=== PATIENT | female | born 1960 | race African-American/Black ===

== ENCOUNTER → 2016-09-04 | Outpatient (CLI) | payer OTHER ==
[~2016-09-04] MED LIST: AMLO10 PO; BACT800T5 PO; CEPH500 PO; HYDR-2768 PO; LISI-591 PO; SULF-154 PO
[2016-09-04 08:56] LABS: HEMATOCRIT 38.1 % (35.0-46.0); MEAN CELL VOLUME 81.7 FL (80.0-100.0); MEAN CORPUSCULAR HEMOGLOBIN 26.6 PG (27.0-34.0); MEAN CORPUSCULAR HGB CONC 32.6 % (32.0-36.0); PLATELET COUNT 186 TH/MM3 (150-450); RED BLOOD COUNT 4.67 MIL/MM3 (4.00-5.30); RED CELL DISTRIBUTION WIDTH 16.2 % (11.6-17.2); REVIEW FLAG FINAL; WHITE BLOOD COUNT 5.4 TH/MM3 (4.0-11.0)
[2016-09-04 09:19] LABS: WESTERGREN SEDIMENTATION RATE 39 mm/hr (0-30)
[2016-09-04 09:34] LABS: ALKALINE PHOSPHATASE 104 U/L (45-117); ALT (GPT) 43 U/L (10-53); ANION GAP 7 MEQ/L (5-15); AST (GOT) 44 U/L (15-37); BICARBONATE 32.1 MEQ/L (21.0-32.0); BLOOD UREA NITROGEN 18 MG/DL (7-18); CHLORIDE 103 MEQ/L (98-107); GLOMERULAR FILTRATION RATE 69 ML/MIN (>89); GLUCOSE,FASTING 86 MG/DL (74-99); SODIUM (NA) 142 MEQ/L (136-145); TOTAL BILIRUBIN ADULT 0.5 MG/DL (0.2-1.0)
[2016-09-04 10:13] LABS: POTASSIUM 2.9 MEQ/L (3.5-5.1)
== END ==
LOC: CLAB 08:32
PROVIDERS: ATTEND Internal Medicine Rheumatology
DX: M06.4 Inflammatory polyarthropathy (principal); Z79.899 Other long term (current) drug therapy
CPT/HCPCS: 36415; 80053; 85027; 85652; 86140

== ENCOUNTER → 2016-09-18 | Outpatient (CLI) | payer OTHER ==
[2016-09-18 10:04] LABS: FREE T4 1.61 NG/DL (0.76-1.46); GLUCOSE,FASTING 90 MG/DL (74-99)
[2016-09-18 16:00] LABS: HEMOGLOBIN A1a 0.8 %; HEMOGLOBIN A1b 1.4 %; HEMOGLOBIN Ao 86.3 %; HEMOGLOBIN LA1C 1.8 %; HEMOGLOBIN P3 3.7 %
== END ==
LOC: CLAB 08:39
DX: E89.0 Postprocedural hypothyroidism (principal); R73.01 Impaired fasting glucose
CPT/HCPCS: 36415; 82947; 83036; 84439; 84443

== ENCOUNTER → 2016-11-13 | Outpatient (CLI) | payer OTHER ==
[2016-11-13 09:26] LABS: HEMATOCRIT 40.3 % (35.0-46.0); MEAN CELL VOLUME 81.7 FL (80.0-100.0); MEAN CORPUSCULAR HEMOGLOBIN 26.7 PG (27.0-34.0); MEAN CORPUSCULAR HGB CONC 32.7 % (32.0-36.0); PLATELET COUNT 167 TH/MM3 (150-450); RED BLOOD COUNT 4.93 MIL/MM3 (4.00-5.30); RED CELL DISTRIBUTION WIDTH 16.5 % (11.6-17.2); REVIEW FLAG FINAL; WHITE BLOOD COUNT 5.1 TH/MM3 (4.0-11.0)
[2016-11-13 09:56] LABS: ALKALINE PHOSPHATASE 92 U/L (45-117); ALT (GPT) 18 U/L (10-53); ANION GAP 7 MEQ/L (5-15); AST (GOT) 22 U/L (15-37); BICARBONATE 31.9 MEQ/L (21.0-32.0); BLOOD UREA NITROGEN 15 MG/DL (7-18); CHLORIDE 102 MEQ/L (98-107); GLOMERULAR FILTRATION RATE 79 ML/MIN (>89); GLUCOSE,FASTING 93 MG/DL (74-99); SODIUM (NA) 141 MEQ/L (136-145); TOTAL BILIRUBIN ADULT 0.6 MG/DL (0.2-1.0)
[2016-11-13 10:02] LABS: WESTERGREN SEDIMENTATION RATE 42 mm/hr (0-30)
[2016-11-13 10:04] LABS: FREE T4 1.23 NG/DL (0.76-1.46)
[2016-11-13 10:31] LABS: POTASSIUM 2.9 MEQ/L (3.5-5.1)
== END ==
LOC: CLAB 09:05
DX: E89.0 Postprocedural hypothyroidism (principal); M34.89 Other systemic sclerosis; Z79.899 Other long term (current) drug therapy
CPT/HCPCS: 36415; 80053; 84439; 84443; 85027; 85652

== ENCOUNTER 2017-03-29 07:39 | Emergency (ER) | payer OTHER ==
[2017-03-29 07:41] VITALS: BP 259/144; PULSE 89; RESP 13; TEMP 98.2; O2SAT 98
[2017-03-29] MEDS ORDERED: HYDR25TA5 PO (08:00)
[2017-03-29] MEDS ORDERED: LISI-515 PO (08:00)
[2017-03-29 08:50] VITALS: RESP 17; O2SAT 99
[2017-03-29 08:53] VITALS: BP 235/114; PULSE 79; RESP 16; TEMP 97.8; O2SAT 99
[2017-03-29 09:01] LABS: AUTOMATED NEUTROPHIL # 5.5 TH/MM3 (1.8-7.7); BASOPHIL % 0.6 % (0.0-2.0); EOSINOPHIL % 0.7 % (0.0-4.0); HEMATOCRIT 37.7 % (35.0-46.0); HEMO FLAGS DIFF FINAL; LYMPH % 13.5 % (9.0-44.0); LYMPHOCYTE # 0.9 TH/MM3 (1.0-4.8); MEAN CELL VOLUME 84.8 FL (80.0-100.0); MEAN CORPUSCULAR HEMOGLOBIN 28.1 PG (27.0-34.0); MEAN CORPUSCULAR HGB CONC 33.2 % (32.0-36.0); MONO % 4.9 % (0.0-8.0); NEUT % 80.3 % (16.0-70.0); PLATELET COUNT 117 TH/MM3 (150-450); RED BLOOD COUNT 4.44 MIL/MM3 (4.00-5.30); RED CELL DISTRIBUTION WIDTH 15.6 % (11.6-17.2); WHITE BLOOD COUNT 6.8 TH/MM3 (4.0-11.0)
[2017-03-29 09:11] LABS: APTT (PATIENT) 28.2 SEC (24.3-30.1); INTERNATIONAL NORMALIZED RATIO 0.9 RATIO; PROTHROMBIN TIME - PATIENT 10.4 SEC (9.8-11.6)
[2017-03-29 09:26] LABS: BICARBONATE 33.7 MEQ/L (21.0-32.0)
[2017-03-29] MEDS ORDERED: ONDANSETRON HCL 4 MG/2 ML VIAL IV PUSH ONE (09:45)
[2017-03-29] MEDS ORDERED: LABETALOL HCL 100 MG/20 ML VIAL IV PUSH ONE (09:45)
[2017-03-29] MEDS ORDERED: MORPHINE SULFATE 4 MG/ML INJ IV PUSH ONE (09:45)
--- NOTE | 2017-03-29 09:45 | PD ---
HPI Chief Complaint: Headache Time Seen by Provider: 09:32 Travel History International Travel<30 days: No Contact w/Intl Traveler<30days: No Traveled to known affect area: No History of Present Illness HPI 56-year-old female complains of headache, elevated blood pressure. Patient has history hypertension and has been taking lisinopril and HCTZ. Patient states that she is not having severe headache last night on the left side the head. Patient stated she vomited 3 times last night. Patient states that headache probably headache overlies the left side. Patient denies any visual change. Patient denies any neck pain. Patient denies any chest pain or shortness of breath. Patient denies abdominal pain. Patient denies any nausea vomiting diarrhea. Patient denies any focal weakness or numbness of the extremity. PFSH Past Medical History Cardiovascular Problems: Yes (HTN, TAKES MEDS) Diminished Hearing: No Endocrine: Yes Genitourinary: No Hypertension: Yes Musculoskeletal: Yes Neurologic: No Psychiatric: No Respiratory: No Thyroid Disease: Yes Tetanus Vaccination: < 5 Years Influenza Vaccination: Yes ?: Not Menopausal: Yes Past Surgical History Gynecologic Surgery: Yes (TUBAL LIGATION) Other Surgery: Yes (thyroidectomy) Social History Alcohol Use: No Tobacco Use: No Substance Use: No Allergies-Medications (Allergen,Severity, Reaction): Coded Allergies: No Known Allergies (Verified , 03/29/17) Reported Meds & Prescriptions Reported Meds & Active Scripts Active Reported Hydrochlorothiazide 25 Mg Tab 25 Mg PO DAILY Lisinopril 20 Mg Tab 20 Mg PO DAILY Review of Systems General / Constitutional: No: Fever Eyes: No: Visual changes HENT: Positive: Headaches Cardiovascular: No: Chest Pain or Discomfort Respiratory: No: Shortness of Breath Gastrointestinal: No: Abdominal Pain Genitourinary: No: Dysuria Musculoskeletal: No: Pain Skin: No Rash Neurologic: No: Weakness Psychiatric: No: Depression Endocrine: No: Polydipsia Hematologic/Lymphatic: No: Easy Bruising Physical Exam Narrative GENERAL: Well-nourished, well-developed patient. SKIN: Focused skin assessment warm/dry. HEAD: Normocephalic. EYES: No scleral icterus. No injection or drainage. Pupils 2 mm equal reactive. NECK: Supple, trachea midline. No JVD or lymphadenopathy. No meningismus CARDIOVASCULAR: Regular rate and rhythm without murmurs, gallops, or rubs. RESPIRATORY: Breath sounds equal bilaterally. No accessory muscle use. GASTROINTESTINAL: Abdomen soft, non-tender, nondistended. MUSCULOSKELETAL: No cyanosis, or edema. BACK: Nontender without obvious deformity. No CVA tenderness. Neurologic exam normal. Data Data Last Documented VS Vital Signs Date Time Temp Pulse Resp B/P (MAP) Pulse Ox O2 Delivery O2 Flow Rate FiO2 03/29/17 10:12 97.8 73 17 194/91 (125) 99 Room Air Orders Orders Electrocardiogram (03/29/17 ) Complete Blood Count With Diff (03/29/17 08:46) Basic Metabolic Panel (Bmp) (03/29/17 08:46) Prothrombin Time / Inr (Pt) (03/29/17 08:46) Act Partial Throm Time (Ptt) (03/29/17 08:46) Ecg Monitoring (03/29/17 08:46) Iv Access Insert/Monitor (03/29/17 08:46) Oximetry (03/29/17 08:46) Troponin I (03/29/17 08:46) Creatine Kinase (Cpk) (03/29/17 08:46) Ckmb (Isoenzyme) Profile (03/29/17 08:46) Morphine Inj (Morphine Inj) (03/29/17 09:45) Ondansetron Inj (Zofran Inj) (03/29/17 09:45) Labetalol Inj (Trandate Inj) (03/29/17 09:45) Ct Brain W/O Iv Contrast(Rout) (03/29/17 09:39) CKMB (03/29/17 08:51) CKMB% (03/29/17 08:51) Potassium Chloride (Kcl) (03/29/17 10:15) Potassium Chlor 20 Meq Premix (Kcl 20 Me (03/29/17 10:15) Labs Laboratory Tests Test 03/29/17 08:51 White Blood Count 6.8 TH/MM3 Red Blood Count 4.44 MIL/MM3 Hemoglobin 12.5 GM/DL Hematocrit 37.7 % Mean Corpuscular Volume 84.8 FL Mean Corpuscular Hemoglobin 28.1 PG Mean Corpuscular Hemoglobin Concent 33.2 % Red Cell Distribution Width 15.6 % Platelet Count 117 TH/MM3 Mean Platelet Volume 8.5 FL Neutrophils (%) (Auto) 80.3 % Lymphocytes (%) (Auto) 13.5 % Monocytes (%) (Auto) 4.9 % Eosinophils (%) (Auto) 0.7 % Basophils (%) (Auto) 0.6 % Neutrophils # (Auto) 5.5 TH/MM3 Lymphocytes # (Auto) 0.9 TH/MM3 Monocytes # (Auto) 0.3 TH/MM3 Eosinophils # (Auto) 0.0 TH/MM3 Basophils # (Auto) 0.0 TH/MM3 CBC Comment DIFF FINAL Differential Comment Prothrombin Time 10.4 SEC Prothromb Time International Ratio 0.9 RATIO Activated Partial Thromboplast Time 28.2 SEC Blood Urea Nitrogen 27 MG/DL Creatinine 1.36 MG/DL Random Glucose 101 MG/DL Calcium Level 8.8 MG/DL Sodium Level 142 MEQ/L Potassium Level 2.9 MEQ/L Chloride Level 101 MEQ/L Carbon Dioxide Level 33.7 MEQ/L Anion Gap 7 MEQ/L Estimat Glomerular Filtration Rate 49 ML/MIN Total Creatine Kinase 441 U/L Creatine Kinase MB 6.4 NG/ML Creatine Kinase MB % 1.5 % Troponin I 0.09 NG/ML [facility] Medical Decision Making Medical Screen Exam Complete: Yes Emergency Medical Condition: Yes Differential Diagnosis Differential diagnosis including uncontrolled hypertension, hypertensive urgency , hypertensive crisis. Narrative Course 56-year-old female with headache and elevated blood pressure. History hypertension. Labetalol 10 mg IV. Morphine 2 mg IV. Zofran 4 mg IV. Blood pressure improved. Headache improving. Patient had elevated BUN/creatinine and troponin. Patient has no chest pain now. Elevated troponin most likely secondary to BUN/creatinine function. Diagnosis Primary Impression: Uncontrolled hypertension Additional Impressions: Cephalgia Qualified Codes: R51 - Headache Renal insufficiency Patient Instructions: General Instructions Additional Instructions: Continue with all medication. Take potassium pills at home as directed. Monitor blood pressure. Clonidine as needed for blood pressure above 180/100. Follow-up with personal physician. Return if worse. Med/Other Pt SpecificInfo: Prescription(s) given Scripts Clonidine (Clonidine) 0.1 Mg Tab 0.1 MG PO BID for Blood Pressure Management, #30 TAB 0 Refills Prov: Nemesio Shah MD 03/29/17 Disposition: 01 DISCHARGE HOME Condition: Stable Nemesio Shah MD Mar 29, 2017 09:45
[2017-03-29 09:49] VITALS: BP 237/121; PULSE 76; RESP 17; TEMP 97.8; O2SAT 100
[2017-03-29 09:58] LABS: POTASSIUM 2.9 MEQ/L (3.5-5.1)
[2017-03-29 10:12] VITALS: BP 194/91; PULSE 73; RESP 17; TEMP 97.8; O2SAT 99
[2017-03-29 10:13] LABS: CKMB 6.4 NG/ML (0.5-3.6)
[2017-03-29] MEDS ORDERED: POTASSIUM CHLOR 20 MEQ PREMIX 100 ML IV ONE (10:15)
[2017-03-29] MEDS ORDERED: POTASSIUM CHLORIDE 20 MEQ CONTROLLED RELEASE TAB PO ONE (10:15)
--- NOTE | 2017-03-29 10:44 | RADRPT ---
EXAM DATE/TIME: 03/29/2017 10:16 [facility] COMPARISON: No previous studies available for comparison. INDICATIONS : Hypertension. Headache today. RADIATION DOSE: 56.39 CTDIvol (mGy) MEDICAL HISTORY : Cardiovascular disease. Hypertension. SURGICAL HISTORY : None. ENCOUNTER: Initial ACUITY: 1 day PAIN SCALE: 0/10 LOCATION: cranial TECHNIQUE: Multiple contiguous axial images were obtained of the head. Using automated exposure control and adj ustment of the mA and/or kV according to patient size, radiation dose was kept as low as reasonably a chievable to obtain optimal diagnostic quality images. DICOM format image data is available electro nically for review and comparison. FINDINGS: CEREBRUM: Nearly linear hypodense lesion in the left subinsular region. The ventricles are normal for age. No evidence of midline shift, mass lesion, hemorrhage or acute infarction. No extra-axial fluid collect ions are seen. POSTERIOR FOSSA: The cerebellum and brainstem are intact. The 4th ventricle is midline. The cerebellopontine angle i s unremarkable. EXTRACRANIAL: The visualized portion of the orbits is intact. SKULL: The calvaria is intact. No evidence of skull fracture. CONCLUSION: 1. Nearly linear configuration region of hypodensity in the left subinsular region may reflect an aty pical dilated Virchow-Robbin space or old lacunar infarct. 2. No acute intracranial abnormality. Indra Olson MD on March 29, 2017 at 10:36 Board Certified Radiologist. This report was verified electronically.
[2017-03-29] MEDS ORDERED: CLON0.1T PO (11:32)
[2017-03-29 12:29] VITALS: BP 156/78; TEMP 97.8
--- NOTE | 2017-03-29 13:04 | EKG ---
Date Performed: 03/29/2017 Time Performed: 08:09:36 PTAGE: 56 years EKG: Sinus rhythm POSSIBLE LEFT ATRIAL ENLARGEMENT POSSIBLE RIGHT VENTRICULAR CONDUCTION DELAY POSSIBLE ANTERIOR MYOCA RDIAL INFARCTION ABNORMAL ECG PREVIOUS TRACING : 02/21/2010 10.19 Compared to previous tracing, poor R wave progression is no w present. DOCTOR: Jorge Spence Interpretating Date/Time 03/29/2017 13:04:11
== END 2017-03-29 12:30 | disposition home or self-care (01) ==
LOC: NEPC 07:39
DX: I10 Essential (primary) hypertension (principal); R51 Headache; N28.9 Disorder of kidney and ureter, unspecified
CPT/HCPCS: 70450; 80048; 82550; 82552; 84484; 85025; 85610; 85730; 93005; 96365; 96366; 96375; 99285; J2270; J2405; J3480

== ENCOUNTER → 2017-04-02 | Outpatient (CLI) | payer OTHER ==
[~2017-04-02] MED LIST changes: -AMLO10 PO; -BACT800T5 PO; -CEPH500 PO; +CLON0.1T PO; -HYDR-2768 PO; +HYDR25TA5 PO; +LISI-515 PO; -LISI-591 PO; -SULF-154 PO
[2017-04-02 09:46] LABS: MEAN CELL VOLUME 85.5 FL (80.0-100.0); MEAN CORPUSCULAR HEMOGLOBIN 27.7 PG (27.0-34.0); MEAN CORPUSCULAR HGB CONC 32.4 % (32.0-36.0); PLATELET COUNT 126 TH/MM3 (150-450); RED CELL DISTRIBUTION WIDTH 15.5 % (11.6-17.2); REVIEW FLAG FINAL; WHITE BLOOD COUNT 5.3 TH/MM3 (4.0-11.0)
[2017-04-02 10:23] LABS: WESTERGREN SEDIMENTATION RATE 32 mm/hr (0-30)
[2017-04-02 10:29] LABS: ANION GAP 7 MEQ/L (5-15); AST (GOT) 29 U/L (15-37); BICARBONATE 31.2 MEQ/L (21.0-32.0); BLOOD UREA NITROGEN 22 MG/DL (7-18); CHLORIDE 101 MEQ/L (98-107); GLOMERULAR FILTRATION RATE 47 ML/MIN (>89); GLUCOSE,FASTING 91 MG/DL (74-99); SODIUM (NA) 139 MEQ/L (136-145)
[2017-04-02 10:33] LABS: ALKALINE PHOSPHATASE 85 U/L (45-117); ALT (GPT) 22 U/L (10-53); TOTAL BILIRUBIN ADULT 0.8 MG/DL (0.2-1.0)
[2017-04-02 10:40] LABS: FREE T4 1.38 NG/DL (0.76-1.46)
== END ==
LOC: CLAB 09:03
DX: M06.9 Rheumatoid arthritis, unspecified (principal); M34.1 CR(E)ST syndrome; E89.0 Postprocedural hypothyroidism; Z79.899 Other long term (current) drug therapy
CPT/HCPCS: 36415; 80053; 84439; 84443; 85027; 85652; 86140

== ENCOUNTER → 2017-04-29 | Outpatient (CLI) | payer OTHER ==
[2017-04-29 09:45] LABS: HEMATOCRIT 35.4 % (35.0-46.0); MEAN CELL VOLUME 85.5 FL (80.0-100.0); MEAN CORPUSCULAR HEMOGLOBIN 28.2 PG (27.0-34.0); PLATELET COUNT 193 TH/MM3 (150-450); RED BLOOD COUNT 4.15 MIL/MM3 (4.00-5.30); RED CELL DISTRIBUTION WIDTH 15.1 % (11.6-17.2); REVIEW FLAG FINAL; WHITE BLOOD COUNT 6.2 TH/MM3 (4.0-11.0)
[2017-04-29 09:53] LABS: BACTERIA, URINE OCC /hpf; BLOOD, URINE SMALL (NEG); GLUCOSE,URINE NEG (NEG); KETONE, URINE NEG (NEG); MUCUS URINE FEW /lpf (OCC); NITRITE,URINE NEG (NEG); PH, URINE 5.5 (5.0-8.5); SQUAMOUS EPITHELIAL CELL URINE 6 /hpf (0-5); TRANSITIONAL EPI CELLS, URINE <1 /hpf; URINE COLOR LIGHT-YELLOW (YELLW/STRAW)
[2017-04-29 10:21] LABS: ANION GAP 9 MEQ/L (5-15)
[2017-04-29 10:23] LABS: ALKALINE PHOSPHATASE 89 U/L (45-117); ALT (GPT) 31 U/L (10-53); AST (GOT) 24 U/L (15-37); BICARBONATE 28.5 MEQ/L (21.0-32.0); BLOOD UREA NITROGEN 22 MG/DL (7-18); CHLORIDE 103 MEQ/L (98-107); GLOMERULAR FILTRATION RATE 43 ML/MIN (>89); GLUCOSE,FASTING 88 MG/DL (74-99); SODIUM (NA) 140 MEQ/L (136-145); TOTAL BILIRUBIN ADULT 0.5 MG/DL (0.2-1.0)
[2017-04-29 10:33] LABS: POTASSIUM 2.8 MEQ/L (3.5-5.1)
== END ==
LOC: CLAB 09:03
PROVIDERS: ATTEND Internal Medicine Rheumatology
DX: M34.89 Other systemic sclerosis (principal); Z79.899 Other long term (current) drug therapy
CPT/HCPCS: 36415; 80053; 81001; 85027

== ENCOUNTER → 2017-05-30 | Outpatient (CLI) | payer OTHER ==
[2017-05-30 10:00] LABS: HEMATOCRIT 35.5 % (35.0-46.0); MEAN CELL VOLUME 85.1 FL (80.0-100.0); MEAN CORPUSCULAR HGB CONC 32.9 % (32.0-36.0); PLATELET COUNT 244 TH/MM3 (150-450); RED BLOOD COUNT 4.17 MIL/MM3 (4.00-5.30); RED CELL DISTRIBUTION WIDTH 14.5 % (11.6-17.2); REVIEW FLAG FINAL; WHITE BLOOD COUNT 4.9 TH/MM3 (4.0-11.0)
[2017-05-30 10:09] LABS: BACTERIA, URINE RARE /hpf; BLOOD, URINE SMALL (NEG); GLUCOSE,URINE NEG (NEG); KETONE, URINE NEG (NEG); MUCUS URINE FEW /lpf (OCC); NITRITE,URINE NEG (NEG); PH, URINE 5.5 (5.0-8.5); SQUAMOUS EPITHELIAL CELL URINE 8 /hpf (0-5); URINE COLOR LIGHT-YELLOW (YELLW/STRAW)
[2017-05-30 10:21] LABS: WESTERGREN SEDIMENTATION RATE 44 mm/hr (0-30)
[2017-05-30 10:38] LABS: ANION GAP 9 MEQ/L (5-15); AST (GOT) 25 U/L (15-37); BICARBONATE 27.1 MEQ/L (21.0-32.0); BLOOD UREA NITROGEN 26 MG/DL (7-18); CHLORIDE 104 MEQ/L (98-107); GLOMERULAR FILTRATION RATE 45 ML/MIN (>89); GLUCOSE,FASTING 86 MG/DL (74-99); POTASSIUM 3.4 MEQ/L (3.5-5.1); SODIUM (NA) 140 MEQ/L (136-145)
[2017-05-30 10:40] LABS: ALT (GPT) 26 U/L (10-53); HDL CHOLESTEROL 44.2 MG/DL (40.0-60.0)
[2017-05-30 10:42] LABS: ALKALINE PHOSPHATASE 104 U/L (45-117); TOTAL BILIRUBIN ADULT 0.2 MG/DL (0.2-1.0)
== END ==
LOC: CLAB 09:03
PROVIDERS: ATTEND Internal Medicine Rheumatology
DX: E78.2 Mixed hyperlipidemia (principal); E89.0 Postprocedural hypothyroidism; R93.1 Abnormal findings on diagnostic imaging of heart and coronary circulation; R06.09 Other forms of dyspnea; J84.89 Other specified interstitial pulmonary diseases; M34.9 Systemic sclerosis, unspecified; I11.9 Hypertensive heart disease without heart failure; R06.02 Shortness of breath
CPT/HCPCS: 36415; 80053; 80061; 81001; 85027; 85652

== ENCOUNTER → 2017-06-17 | Outpatient (CLI) | payer OTHER ==
[2017-06-17 07:23] LABS: BICARBONATE 29.4 MEQ/L (21.0-32.0)
== END ==
LOC: CLAB 06:41
PROVIDERS: ATTEND Internal Medicine Interventional Cardiology
DX: R06.02 Shortness of breath (principal); I27.20 Pulmonary hypertension, unspecified; I11.9 Hypertensive heart disease without heart failure
CPT/HCPCS: 36415; 80048

== ENCOUNTER → 2017-10-01 | Outpatient (CLI) | payer OTHER ==
[2017-10-01 10:06] LABS: HEMATOCRIT 38.2 % (35.0-46.0); HEMOGLOBIN 12.4 GM/DL (11.6-15.3); MEAN CELL VOLUME 83.5 FL (80.0-100.0); MEAN CORPUSCULAR HEMOGLOBIN 27.1 PG (27.0-34.0); MEAN CORPUSCULAR HGB CONC 32.4 % (32.0-36.0); MEAN PLATELET VOLUME 8.1 FL (7.0-11.0); PLATELET COUNT 214 TH/MM3 (150-450); RED BLOOD COUNT 4.58 MIL/MM3 (4.00-5.30); RED CELL DISTRIBUTION WIDTH 15.4 % (11.6-17.2); WHITE BLOOD COUNT 5.2 TH/MM3 (4.0-11.0)
[2017-10-01 10:09] LABS: BACTERIA, URINE OCC /hpf; BILIRUBIN, URINE NEG (NEG); BLOOD, URINE SMALL (NEG); GLUCOSE,URINE NEG (NEG); HYALINE CAST, URINE 2 /lpf (RARE); KETONE, URINE NEG (NEG); MUCUS URINE FEW /lpf (OCC); NITRITE,URINE NEG (NEG); PH, URINE 5.5 (5.0-8.5); SQUAMOUS EPITHELIAL CELL URINE 20 /hpf (0-5); TRANSITIONAL EPI CELLS, URINE <1 /hpf; URINE COLOR LIGHT-YELLOW (YELLW/STRAW); URINE LEUKOCYTE ESTERASE MOD (NEG)
[2017-10-01 10:31] LABS: ALBUMIN 3.4 GM/DL (3.4-5.0); AST (GOT) 26 U/L (15-37); BICARBONATE 29.6 MEQ/L (21.0-32.0); BLOOD UREA NITROGEN 28 MG/DL (7-18); CALCIUM 8.6 MG/DL (8.5-10.1); CHLORIDE 107 MEQ/L (98-107); CREATININE 1.56 MG/DL (0.50-1.00); GLOMERULAR FILTRATION RATE 42 ML/MIN (>89); GLUCOSE,FASTING 87 MG/DL (74-99); SODIUM (NA) 142 MEQ/L (136-145)
[2017-10-01 10:32] LABS: ALT (GPT) 37 U/L (10-53)
[2017-10-01 10:35] LABS: ALKALINE PHOSPHATASE 101 U/L (45-117); TOTAL BILIRUBIN ADULT 0.4 MG/DL (0.2-1.0); TOTAL PROTEIN 7.7 GM/DL (6.4-8.2)
[2017-10-01 10:38] LABS: WESTERGREN SEDIMENTATION RATE 31 mm/hr (0-30)
== END ==
LOC: CLAB 09:10
PROVIDERS: ATTEND Internal Medicine Interventional Cardiology
DX: M06.4 Inflammatory polyarthropathy (principal); I20.8 Other forms of angina pectoris; R94.31 Abnormal electrocardiogram [ECG] [EKG]; I35.1 Nonrheumatic aortic (valve) insufficiency; I34.0 Nonrheumatic mitral (valve) insufficiency; R06.02 Shortness of breath; Z79.899 Other long term (current) drug therapy
CPT/HCPCS: 36415; 80053; 81001; 85027; 85652